=== PATIENT | female | born 1995 ===

== ENCOUNTER 2023-11-20 15:24 | Inpatient (IN) | payer BC ==
[2023-11-20] MEDS ORDERED: Sodium Chloride 0.9% 2.5 ML Syringe FLUSH PRN ×3 (15:29→22:38)
[2023-11-20] MEDS ORDERED: Sodium Chloride 0.9% 20 ML SDV IV PRN ×2 (15:29→18:15)
[2023-11-20] MEDS ORDERED: Sodium Chloride 0.9% 10 ML Syringe FLUSH PRN ×3 (15:29→22:38)
[2023-11-20 15:56] LABS: APPEARANCE,URINE HAZY; BILIRUBIN,URINE NEGATIVE (NEGATIVE); COLOR,URINE DARK YELLOW; GLUCOSE,URINE NEGATIVE (NEGATIVE); KETONES,URINE >=80 mg/dL (NEGATIVE); LEUKOCYTE ESTERASE,URINE LARGE (NEGATIVE); NITRITE,URINE NEGATIVE (NEGATIVE); OCCULT BLOOD,URINE NEGATIVE (NEGATIVE); PROTEIN,URINE 30 mg/dL (NEGATIVE)
[2023-11-20 15:56] LABS: HEMATOCRIT 38.4 % (37.0-47.0); HEMOGLOBIN 12.7 g/dL (12.0-16.0); MEAN CORPUSCULAR HEMOGLOBIN 29.5 pg (28.0-32.0); MEAN CORPUSCULAR HGB CONC 33.1 g/dL (32.0-36.0); MEAN CORPUSCULAR VOLUME 89.3 fL (83.0-99.0); MEAN PLATELET VOLUME 11.2 fL (9.4-12.3); PLATELET COUNT,PLT 220 K/uL (150-400); WHITE BLOOD CELL COUNT,WBC 9.49 K/uL (3.9-11.3)
[2023-11-20] MEDS: Ondansetron 4 MG/2 ML SDV IVPUSH PRN (16:00)
[2023-11-20] MEDS: Lactated Ringers 1,000 ML IV SCH ×2 (16:06→17:11)
[2023-11-20 16:20] LABS: A/G RATIO 0.7 (0.9-1.6); ALBUMIN 2.8 g/dL (3.4-5.0); BILIRUBIN TOTAL 0.6 mg/dL (0.2-1.0); CALCIUM 9.1 mg/dL (8.5-10.1); CARBON DIOXIDE,CO2 24.1 mmol/L (21.0-32.0); CREATININE 0.6 mg/dL (0.6-1.0); EST CRCL DRUG DOSING (CG) 158.81 mL/min; POTASSIUM,K 3.8 mmol/L (3.5-5.1); PROTEIN TOTAL,TP 6.8 g/dL (6.4-8.2)
[2023-11-20 16:43] LABS: CREATININE,URINE RAND 232.4 mg/dL; PROTEIN CREATININE RATIO,URINE 0.2; PROTEIN,URINE RANDOM 39.9 mg/dL (<11.9)
[2023-11-20] MEDS ORDERED: Tranexamic Acid IN NACL,ISO-OS 1,000 MG in Premix Bag 1 BAG IV PRN (18:15)
[2023-11-20] MEDS ORDERED: Carboprost Tromethamine 250 MCG/1 mL Vial IM PRN (18:15)
[2023-11-20] MEDS ORDERED: Lidocaine 1% 50 ML MDV INJECT PRN (18:15)
[2023-11-20] MEDS ORDERED: Water For Irrigation,Sterile 1,000 ML Container IRR PRN (18:15)
[2023-11-20] MEDS ORDERED: Methylergonovine 0.2 MG/1 ML Amp IM PRN (18:15)
[2023-11-20] MEDS ORDERED: Misoprostol 200 MCG Tab PO PRN (18:15)
[2023-11-20] MEDS ORDERED: Butorphanol 2 MG/ML SDV IVPUSH PRN (18:15)
[2023-11-20] MEDS: Ampicillin 2 GM in Sodium Chloride 0.9% 100 ML IV SCH (19:25)
[2023-11-20] MEDS: Famotidine 20 MG Tab PO PRN (20:12)
[2023-11-20] MEDS: Nalbuphine 10 MG/1 ML Vial IVPUSH PRN (20:28)
[2023-11-20] MEDS: Oxytocin/0.9 % Sodium Chloride 30 UNIT/500 ML BAG IV SCH (20:43)
[2023-11-20] MEDS: Benzocaine/Menthol 20%-0.5% Spray 78 GM Cannister ONE (22:44)
[2023-11-20 22:57] LABS: PH,UMBILICAL ARTERIAL 7.294 (7.18-7.38); PH,UMBILICAL VENOUS 7.31 (7.25-7.45)
[2023-11-21 05:55] LABS: HEMATOCRIT 32.9 % (37.0-47.0); HEMOGLOBIN 11.1 g/dL (12.0-16.0); MEAN CORPUSCULAR HEMOGLOBIN 29.7 pg (28.0-32.0); MEAN CORPUSCULAR HGB CONC 33.7 g/dL (32.0-36.0); MEAN PLATELET VOLUME 10.9 fL (9.4-12.3); PLATELET COUNT,PLT 200 K/uL (150-400); RED BLOOD CELL COUNT 3.74 M/uL (4.10-5.30); WHITE BLOOD CELL COUNT,WBC 15.58 K/uL (3.9-11.3)
[2023-11-21] MEDS: Prenatal Multivitamin with Calcium/Folic Acid/Iron Tab PO SCH (08:48)
[2023-11-21] MEDS: Acetaminophen 325 MG Tab PO PRN (20:14)
[2023-11-21] MEDS: Docusate Sodium 100 MG Cap PO PRN (20:14)
[2023-11-21] MEDS: Ibuprofen 800 MG Tab PO PRN (20:16)
[2023-11-21] MEDS: Witch Hazel Medicated Pads 40/Jar TOP PRN (20:17)
[2023-11-21] MEDS: Benzocaine/Menthol 20%-0.5% Spray 78 GM Cannister TOP PRN (20:17)
[2023-11-21] MEDS: Lanolin 100% Cream 7 GM Tube TOP PRN (20:17)
[2023-11-21] MEDS ORDERED: Ibuprofen 800 MG Tab PO PRN (21:00)
[2023-11-21] MEDS ORDERED: Acetaminophen 500 MG Tab PO PRN (22:38)
== END 2023-11-22 16:15 | disposition home or self-care (01) | DRG 560 ==
LOC: MW.OBCHECK 15:24 → MW.OB 15:29 → MW.OBCHECK 19:12 → OBSVTOIN 22:15 → MW.OB 11-21 03:48
PROVIDERS: ADMIT Obstetrics & Gynecology; ATTEND Obstetrics & Gynecology
PROC: 10E0XZZ Delivery of Products of Conception, External Approach (ICD-10-PCS; principal; 2023-11-20)
PROC: 10907ZC Drainage of Amniotic Fluid, Therapeutic from Products of Conception, Via Natural or Artificial Opening (ICD-10-PCS; 2023-11-20)
DX: O42.02 Full-term premature rupture of membranes, onset of labor within 24 hours of rupture (principal); O90.81 Anemia of the puerperium; Z37.0 Single live birth; Z3A.38 38 weeks gestation of pregnancy; D62 Acute posthemorrhagic anemia; O10.92 Unspecified pre-existing hypertension complicating childbirth
CPT/HCPCS: 36415; 59025; 59409; 59414; 80053; 81003; 82570; 82803; 83615; 84112; 84156; 85027; 86592; 86850; 86900; 86901; A9270-GY; J0290; J2300; J2405; J2590; J3490; J7120